=== PATIENT | female | born 1995 | race Caucasian/White ===

== ENCOUNTER 2024-08-05 18:20 | Emergency (ER) | payer MEDICAID, SELFPAY ==
[2024-08-05 18:24] VITALS: BP 129/89; PULSE 101; RESP 16; TEMP 37.3; O2SAT 95; BMI 21.5
--- NOTE | 2024-08-05 18:54 | CRLHL7_ITS ---
For Patients: As a result of the Century Cures Act, medical imaging exams and procedure reports are released immediately into your electronic medical record. You may view this report before your referring provider. If you have questions, please contact your health care provider. INDICATION: Back pain. History of scoliosis. TECHNIQUE: PA and lateral chest radiographs. COMPARISON: None. FINDINGS: No pneumothorax or pleural effusion. Lungs are clear. Cardiac and mediastinal contours are within normal limits. Upper abdomen and osseous structures as imaged show no acute abnormality. Rightward convex curvature of the thoracic spine and leftward convex curvature of the lumbar spine. Thoracic anand hardware appears intact. IMPRESSION: No evidence of acute cardiopulmonary disease. Dictated by Tyree Cooper MD @ 08/05/2024 7:37:10 PM (Electronically Signed)
--- NOTE | 2024-08-05 18:55 | ED_ITS ---
HPI - Back Pain/Injury General Chief Complaint: Back Injury/Pain Stated Complaint: Back pain since childbirth Time Seen by Provider: 08/05/24 18:34 History of Present Illness HPI Narrative: This 29-year-old female comes in reporting right-sided back and rib pain that has been present more less for the past 16 months since the delivery of her son. She has a history of scoliosis and did have a surgery to stabilize her back 18 years ago. She has done well since then. She does report a feeling of fatigue and shortness of breath when climbing stairs or doing activities that she could otherwise tolerate. She does not report any unilateral limb swelling and reports no prior history of blood clot. She does not have any recent injury event but does have a growing son who she frequently lifts. She arrives here with normal vital signs except her pulse is borderline tachycardia at 100 1 beats per minute. Related Data Home Medications ?Medication ?Instructions ?Recorded ?Confirmed albuterol sulfate 90 mcg/actuation 2 puff inhalation Q6H PRN wheezing 08/05/24 08/05/24 aerosol inhaler (Ventolin HFA) dextroamphetamine-amphetamine 10 1 tab PO DAILY 08/05/24 08/05/24 mg tablet dextroamphetamine-amphetamine ER 1 cap PO DAILY 08/05/24 08/05/24 30 mg 24hr capsule,extend release fluticasone 100 mcg-salmeterol 50 1 ea inhalation Q12H 08/05/24 08/05/24 mcg/dose blistr powdr for inhalation (Advair Diskus) levothyroxine 25 mcg tablet 25 mcg PO DAILY 08/05/24 08/05/24 norethindrone acetate 1.5 1 tab PO DAILY 08/05/24 08/05/24 mg-ethinyl estradiol 30 mcg tablet (Yusra) Previous Rx's ?Medication ?Instructions ?Recorded ketorolac 10 mg tablet 10 mg PO Q8H 5 days #15 tabs 08/05/24 Allergies Allergy/AdvReac Type Severity Reaction Status Date / Time Sulfa (Sulfonamide Allergy Mild Hives Verified 08/05/24 18:33 Antibiotics) Review of Systems Status of ROS: Reports: 10 or more systems reviewed and unremarkable except as noted in History and below Narrative: Constitutional: No fevers, no weight gain or loss. Eyes: No discharge. No vision changes. HENT: No congestion, no sore throat, no ear pain. Cardiovascular: No chest pain, no palpitations. Respiratory: No shortness of breath, no wheezes, no cough. Gastrointestinal: No abdominal pain, no vomiting, no diarrhea. Genitourinary: No dysuria, no hematuria. Musculoskeletal: Normal range of motion. Pain is more localized just right of [place] in her mid back and sometimes radiates around to her right ribs. Skin: No rashes, no pruritis. Neurological: No dizziness, weakness, sensory change, speech change. Endo/Heme/Allergies: No bruising or bleeding. No polydipsia. Pysch: no suicidality, no anxiety, no insomnia. All other systems reviewed and are negative. PFSH [facility] Social History Smoking Status: Never smoker Do you use any of these nicotine containing products: None Second hand tobacco smoke exposure: No How often do you have a drink containing alcohol: never AUDIT-C Alcohol total score: 0 Non-prescribed substance use: denies use service: No Exam Narrative: Exam Narrative: Constitutional: Well-developed, well-nourished, no acute distress. HEENT: Normocephalic, atraumatic. Neck: Normal range of motion. Nontender. Supple. Heart: Regular. No murmurs. Normal rate. Intact distal pulses. Lungs: Clear to auscultation. No chest discomfort. No wheezes, rhonchi, or r ales. Abdomen: Normal bowel sounds. Nontender. No rebound tenderness. Genitalia: Deferred. Back: No midline tenderness. Normal range of motion. Extremities: Normal range of motion. No injury. Skin: Intact. No rash. Warm. No erythema or pallor. Neurologic: No altered sensation. No weakness. Alert and oriented. Psychiatric: No suicidality. No anxiety or depression. No insomnia. Nursing notes and vitals signs are reviewed. Const: Vital Signs, click to edit/add: Vital Signs - 24 hr 08/05/24 18:24 Temperature 99.2 F Pulse Rate [Pulse Oximeter] 101 H Respiratory Rate 16 Blood Pressure [Ri ght Upper Arm] 129/89 Pulse Oximetry 95 Oxygen Delivery Me thod Room Air Course Vital Signs Vital signs: Initial Vital Signs Temperature 99.2 F 08/05/24 18:24 Temperature Source Temporal Artery Scan 08/05/24 18:24 Pulse Rate 101 H 08/05/24 18:24 Pulse Rhythm Regular 08/05/24 18:24 Pulse Strength 3+ Normal 08/05/24 18:24 Respiratory Rate 16 08/05/24 18:24 Blood Pressure 129/89 08/05/24 18:24 Blood Pressure Mean 102 08/05/24 18:24 Blood Pressure Position Sitting 08/05/24 18:24 Pulse Oximetry 95 08/05/24 18:24 Oxygen Delivery Method Room Air 08/05/24 18:24 Vital Signs Temperature 99.2 F 08/05/24 18:24 Pulse Rate 101 H 08/05/24 18:24 Respiratory Rate 16 08/05/24 18:24 Blood Pressure 129/89 08/05/24 18:24 Pulse Oximetry 95 08/05/24 18:24 Oxygen Delivery Method Room Air 08/05/24 18:24 Temperature 99.2 F 08/05/24 18:24 Pulse Rate 101 H 08/05/24 18:24 Respiratory Rate 16 08/05/24 18:24 Blood Pressure 129/89 08/05/24 18:24 Pulse Oximetry 95 08/05/24 18:24 Oxygen Delivery Method Room Air 08/05/24 18:24 MDM - Back Pain/Injury MDM Narrative Medical decision making narrative: This patient comes in reporting pain along the right side of her spine in the mid back and radiates along her chest. She comes in with concerns after reading from web sites on the Internet thinking that she just wants to know that she does not have something else wrong with her like cancer. She does have scoliosis and did have raw displaced about 18 years ago. She does not report any specific injury event but does have demands for lifting her [id number] son. Her exam is reassuring today. Labs are acquired and these returned with normal results. Her D-dimer is in normal range. Her C reactive protein returns at 2. Her white count and hemoglobin electrolytes are all normal range. Additionally x-ray of her chest is obtained which shows no acute findings. This was reassuring to the patient. She is okay to be discharged home. I did provide a prescription for Toradol. Lab Data Labs: Lab Results 08/05/24 Range/Units 19:04 WBC 6.99 (4.50-11.00) K/uL RBC 4.55 (4.00-5.20) m/uL Hgb 14.1 (12.0-16.0) gm/dL Hct 41.9 (33.0-51.0) % MCV 92 (80-100) fL MCH 31 (26-34) pg MCHC 34 (32-36) gm/dL RDW Coeff of Kwadwo 13.1 (11.5-15.5) % Plt Count 282 (140-440) K/uL Neut % (Auto) 80.9 H (42.0-72.0) % Lymph % (Auto) 10.9 L (20-44) % [place] % (Auto) 7.4 (0.0-11.0) % Eos % (Auto) 0.3 (0.0-7.0) % Baso % (Auto) 0.4 (0.0-3.0) % Neut # (Auto) 5.70 (1.7-7.0) K/uL Lymph # (Auto) 0.80 L (0.90-2.90) K/uL [place] # (Auto) 0.50 (0.00-0.90) K/UL Eos # (Auto) 0.02 (0.00-0.50) K/uL Baso # (Auto) 0.03 (0.00-0.30) K/uL Abs Immat Gran (auto) 0.01 (0.00-0.30) K/uL Imm/Tot Granulo (auto) 0.1 % D-Dimer Quant (PE/DVT) 0.34 (0.00-0.50) ug/ml Sodium 137 (135-149) mmol/L Potassium 3.9 (3.6-5.1) mmol/L Chloride 103 (96-114) mmol/L Carbon Dioxide 28 (20-32) mmol/L Anion Gap 6 L (7-15) mEq/L BUN 15 (5-24) mg/dL Creatinine 0.8 (0.5-1.5) mg/dL Estimated Creat Clear 73.19 Estimated GFR 101 ml/min Glucose 101 (60-115) mg/dL Calcium 9.4 (8.4-10.6) mg/dL C-Reactive Protein 2.1 H (0.5-1.0) mg/dL Imaging Data Chest x-ray: Radiologist's impression: FINDINGS: No pneumothorax or pleural effusion. Lungs are clear. Cardiac and mediastinal contours are within normal limits. Upper abdomen and osseous structures as imaged show no acute abnormality. Rightward convex curvature of the thoracic spine and leftward convex curvature of the lumbar spine. Thoracic anand hardware appears intact. IMPRESSION: No evidence of acute cardiopulmonary disease. Discharge Plan Discharge Clinical Impression: Thoracic back pain Patient Disposition: Home, Self-Care Condition: Stable Additional Instructions: Take medication as needed and indicated. Activity as tolerated. Follow up with MD return if worsening. Prescriptions: New ketorolac 10 mg tablet 10 mg PO Q8H 5 Days Qty: 15 0RF No Action dextroamphetamine-amphetamine 10 mg tablet 1 tab PO DAILY norethindrone ac-eth estradiol [Yusra] 1.5-30 mg-mcg tablet 1 tab PO DAILY levothyroxine 25 mcg tablet 25 mcg PO DAILY fluticasone propion-salmeterol [Advair Diskus] 100-50 mcg/dose blister with device 1 ea inhalation Q12H albuterol sulfate [Ventolin HFA] 90 mcg/actuation HFA aerosol inhaler 2 puff inhalation Q6H PRN (Reason: wheezing) dextroamphetamine-amphetamine 30 mg capsule,extended release 24hr 1 cap PO DAILY Follow Up/Referrals: Provider,Not a Local [Primary Care Provider] - Stand Alone Forms: [employer] Info Instructions
[2024-08-05 19:10] LABS: Basophils Absolute Auto 0.03 K/uL (0.00-0.30); Basophils Percent Auto 0.4 % (0.0-3.0); Eosinophils Absolute Auto 0.02 K/uL (0.00-0.50); Eosinophils Percent Auto 0.3 % (0.0-7.0); Hematocrit 41.9 % (33.0-51.0); Hemoglobin* 14.1 gm/dL (12.0-16.0); Immature Granulocytes Abs Auto 0.01 K/uL (0.00-0.30); Immature Granulocytes Pct Auto 0.1 %; Lymphocytes Percent Auto 10.9 % (20-44); Mean Corpuscular HGB Conc 34 gm/dL (32-36); Mean Corpuscular Hemoglobin 31 pg (26-34); Mean Corpuscular Volume 92 fL (80-100); Monocytes Percent Auto 7.4 % (0.0-11.0); Neutrophils Percent Auto 80.9 % (42.0-72.0); Platelet Count* 282 K/uL (140-440); RDW Coefficient of Variation % 13.1 % (11.5-15.5); Red Blood Count 4.55 m/uL (4.00-5.20); White Blood Count* 6.99 K/uL (4.50-11.00)
[2024-08-05 19:15] LABS: Slide Review Reflex No
[2024-08-05 19:49] LABS: Chloride* 103 mmol/L (96-114); Potassium* 3.9 mmol/L (3.6-5.1); Sodium* 137 mmol/L (135-149)
[2024-08-05 19:52] LABS: Creatinine* 0.8 mg/dL (0.5-1.5); Est. Creatinine Clearance* 73.19; Estimated Glomerular Filt Rate 101 ml/min
[2024-08-05 19:53] LABS: Anion Gap 6 mEq/L (7-15); Blood Urea Nitrogen* 15 mg/dL (5-24); Calcium* 9.4 mg/dL (8.4-10.6); Carbon Dioxide* 28 mmol/L (20-32); Glucose* 101 mg/dL (60-115)
[2024-08-05 19:56] LABS: C Reactive Protein* 2.1 mg/dL (0.5-1.0)
[2024-08-05 20:16] LABS: D Dimer Quantitative* 0.34 ug/ml (0.00-0.50)
== END 2024-08-05 20:37 | disposition home or self-care (01) ==
PROVIDERS: Emergency Provider Emergency Medicine Emergency Medical Services
DX: M54.6 Pain in thoracic spine (principal)
CPT/HCPCS: 36415; 71046; 80048; 85025; 85379; 86140; 99284

== ENCOUNTER 2024-11-04 11:07 | Emergency (ER) | payer MEDICAID, SELFPAY ==
[2024-11-04 11:24] VITALS: BP 153/116; PULSE 140; RESP 20; TEMP 36.5; O2SAT 96
--- NOTE | 2024-11-04 11:38 | ED.GENADULT ---
HPI - General Adult General Time Seen by Provider: 11:38 Date Seen: 11/04/24 Chief complaint: Cough Stated complaint: Chest Congestion Time Seen by Provider: 11/04/24 11:09 Source: patient and RN notes reviewed Mode of arrival: ambulatory Limitations: no limitations History of Present Illness HPI narrative: With this 29-year-old female is coming in with concern of cough and congestion for week now. She has been trying Mucinex for the last 2 days, has helped some. Patient does have underlying asthma. Her son is also being seen for respiratory illness. She ultimately is bringing her son in for evaluation but really just wanted somebody to listen to her lungs. She had 1 day Saturday of last week where she just randomly had a day where she threw up 5 times and was not feeling well, that abated. Her cough and chest congestion started recently, Mucinex is helping, is coughing up some green phlegm at times. She notes no fevers. She did use her albuterol in route. She states she has had increased use of her albuterol. She is not short of breath, no chest pain. She is also on Adderall. Denies any otalgia or sore throat, no current abdominal symptoms, no nausea vomiting or diarrhea currently. Related Data Home Medications ?Medication ?Instructions ?Recorded ?Confirmed albuterol sulfate 90 mcg/actuation 2 puff inhalation Q6H PRN wheezing 08/05/24 11/04/24 aerosol inhaler (Ventolin HFA) dextroamphetamine-amphetamine 10 1 tab PO DAILY 08/05/24 11/04/24 mg tablet dextroamphetamine-amphetamine ER 1 cap PO DAILY 08/05/24 11/04/24 30 mg 24hr capsule,extend release fluticasone 100 mcg-salmeterol 50 1 ea inhalation Q12H 08/05/24 11/04/24 mcg/dose blistr powdr for inhalation (Advair Diskus) levothyroxine 25 mcg tablet 25 mcg PO DAILY 08/05/24 11/04/24 norethindrone acetate 1.5 1 tab PO DAILY 08/05/24 11/04/24 mg-ethinyl estradiol 30 mcg tablet (Yusra) Previous Rx's ?Medication ?Instructions ?Recorded ketorolac 10 mg tablet 10 mg PO Q8H 5 days #15 tabs 08/05/24 azithromycin 250 mg tablet See Rx Instructions PO .COMPLEX #6 11/04/24 tabs Allergies Allergy/AdvReac Type Severity Reaction Status Date / Time Sulfa (Sulfonamide Allergy Mild Hives Verified 08/05/24 18:33 Antibiotics) hazelnut Allergy Unknown Verified 11/04/24 11:27 Review of Systems Status of ROS: Reports: 6 or more systems reviewed and unremarkable except as noted in History and below [facility] Medical History (Updated 11/04/24 @ 13:01 by Martha Perla MD) Asthma ?J45.909 - Unspecified asthma, uncomplicated (ICD-10) Social History Smoking Status: Never smoker Do you use any of these nicotine containing products: None Second hand tobacco smoke exposure: No How often do you have a drink containing alcohol: never AUDIT-C Alcohol total score: 0 Non-prescribed substance use: denies use service: No Exam Const: Vital Signs, click to edit/add: Vital Signs - 24 hr 11/04/24 11:24 Temperature 97.7 F Pulse Rate [Pulse Oximeter] 140 H Respiratory Rate 20 Blood Pressure [Ri ght Upper Arm] 153/116 H Pulse Oximetry 96 Oxygen Delivery Me thod Room Air This 29 year old female is alert, interactive, no apparent distress. Pupils equal round reactive, sclera clear, symmetrical facial function. TMs canals are normal, normal translucency and light reflex. Oropharynx are mucosa no exudates erythema. She is able speak in complete sentences, voice is normal. Neck is supple, no adenopathy. Lungs are clear, good air entry, no wheezing or crackles, no accessory muscle use, no tachypnea. CV slightly fast but regular, do not hear any murmur, normal S1-S2, no S3-S4. Pulse when I take it when I am in with her is around 100-110. Documenting provider has reviewed patient's vital signs: yes Course Course ED Course: Mom had declined the triple viral swab but agreed to have this done on her son as he is unvaccinated and it is important for us to understand his exact illness. She has had prior childhood immunizations. Right now her heart rate is coming down, certainly could have been albuterol. COVID sometimes has shown to escalate heart rates for patients. We will see what her son's swab comes back with. He certainly may have COVID but with his clinical respiratory presentation with crying, highly suspect pertussis and have reviewed this with Mom. We will see what her son shows and very likely probably treat both of them for potential pertussis with appropriate antibiotic. Reevaluation(s) Time of Reevaluation #1: 12:47 Reevaluation #1: Reviewed child negative tests with Mom, her child is now resting easily, she is not coughing, no concerning respiratory change on re-evaluation. As I do have significant clinical concern for pertussis in her child, it is likely she has this as well but just some milder case given her history of vaccination. We did discuss that with pertusses household contacts and those that are ill should be treated. We will give her a Z-Alec. She is on contraception, did discuss that antibiotics can decrease the effectiveness of contraceptives and should use extra protection until next cycle. Vital Signs Vital signs: Initial Vital Signs Temperature 97.7 F 11/04/24 11:24 Temperature Source Oral 11/04/24 11:24 Pulse Rate 140 H 11/04/24 11:24 Respiratory Rate 20 11/04/24 11:24 Blood Pressure 153/116 H 11/04/24 11:24 Blood Pressure Mean 128 H 11/04/24 11:24 Blood Pressure Position Sitting 11/04/24 11:24 Pulse Oximetry 96 11/04/24 11:24 Oxygen Delivery Method Room Air 11/04/24 11:24 Vital Signs Temperature 97.7 F 11/04/24 11:24 Pulse Rate 140 H 11/04/24 11:24 Respiratory Rate 20 11/04/24 11:24 Blood Pressure 153/116 H 11/04/24 11:24 Pulse Oximetry 96 11/04/24 11:24 Oxygen Delivery Method Room Air 11/04/24 11:24 Temperature 97.7 F 11/04/24 11:24 Pulse Rate 140 H 11/04/24 11:24 Respiratory Rate 20 11/04/24 11:24 Blood Pressure 153/116 H 11/04/24 11:24 Pulse Oximetry 96 11/04/24 11:24 Oxygen Delivery Method Room Air 11/04/24 11:24 Discharge Plan Discharge Clinical Impression: Cough Qualifiers: Cough type: acute Qualified Code(s): R05.1 - Acute cough Asthma Qualifiers: Asthma severity: unspecified severity Asthma persistence: unspecified Asthma complication type: uncomplicated Qualified Code(s): J45.909 - Unspecified asthma, uncomplicated Patient Disposition: Home, Self-Care Condition: Stable Instructions: Pertussis (ED) Additional Instructions: Take antibiotic as prescribed and complete. Use backup method of protection until next cycle as antibiotics can decreased effectiveness of control. I am concerned that your son clinically appears to have pertussis, swab is being done on him. We will treat you accordingly. Guidelines recommend that you avoid contact and stay at home until your antibiotics are completed. Use albuterol, [id number] medications such as Mucinex as needed for symptom control. If you feel you are worsening or have further concerns, please seek re-evaluation. Prescriptions: New azithromycin 250 mg tablet See Rx Instructions .ROUTE .COMPLEX Qty: 6 0RF Rx Instructions: For 250 mg dose pack: take 500 mg today (day 1), then 250 mg for 4 days (days 2-5) No Action dextroamphetamine-amphetamine 10 mg tablet 1 tab PO DAILY norethindrone ac-eth estradiol [Yusra] 1.5-30 mg-mcg tablet 1 tab PO DAILY levothyroxine 25 mcg tablet 25 mcg PO DAILY fluticasone propion-salmeterol [Advair Diskus] 100-50 mcg/dose blister with device 1 ea inhalation Q12H albuterol sulfate [Ventolin HFA] 90 mcg/actuation HFA aerosol inhaler 2 puff inhalation Q6H PRN (Reason: wheezing) dextroamphetamine-amphetamine 30 mg capsule,extended release 24hr 1 cap PO DAILY ketorolac 10 mg tablet 10 mg PO Q8H 5 Days Qty: 15 0RF Follow Up/Referrals: Provider,Not a Local [Primary Care Provider] - Stand Alone Forms: [employer] Info Instructions
[2024-11-04 13:14] VITALS: BP 154/107; PULSE 109; RESP 20; O2SAT 97
== END 2024-11-04 13:21 | disposition home or self-care (01) ==
PROVIDERS: Emergency Provider Family Medicine
DX: J45.909 Unspecified asthma, uncomplicated (principal); R05.1 Acute cough
CPT/HCPCS: 99283

== ENCOUNTER 2024-12-14 00:06 | Emergency (ER) | payer MEDICAID, SELFPAY ==
--- OUTSIDE RECORDS SUMMARY | 2024-12-14 00:08 | XMS_ITS | Clinical Summary ---
Author Organization [facility] Address [address] [place] [address]. [place] [address] Care Team Providers Care Gauge Controller Name Role Phone Felipa Wallace PA-C Primary Care Provid er Felipa Wallace PA-C Unavailable +1- [phone] Allergies Active Allergy Reactions Criticality Noted Date Comments Amoxicillin 07/24/2013 Cefixime 09/05/2020 Had a reaction when I was a baby. Does not know the reaction [place]elnut (Filbert) 04/10/2023 Medications EPINEPHrine (ANY BX GENERIC EQUIV) 0.3 MG/0.3ML injection 2-pack Inject 0.3 mLs (0.3 mg) into the muscle as needed for anaphylaxis 1 each 09/05/20 20 Active JUNEL 1.04/30 1.5-30 MG-MCG tablet Take 1 tablet by mouth daily 08/19/20 23 Active levothyroxine (SYNTHROID/LEVOTH ROID) 25 MCG tabletIndications :Hypothyroidism, unspecified type Take 1 tablet (25 mcg) by mouth daily 90 tablet 1 07/15/20 24 Active albuterol (VENTOLIN HFA) 108 (90 Base) MCG/ACT inhalerIndication s:Moderate persistent asthma without complication Inhale 2 puffs into the lungs every 6 hours as needed for shortness of breath, wheezing or cough. 18 g 07/28/20 24 Active ADVAIR DISKUS 100-50 MCG/ACT inhalerIndication s:Mild persistent asthma without complication,Shor tness of breath INHALE 1 PUFF INTO THE LUNGS EVERY 12 HOURS 1 each 5 08/25/20 24 Active amphetamine-dextr oamphetamine (ADDERALL) 10 MG tabletIndications :ADHD (attention deficit hyperactivity disorder), inattentive type Take 1 tablet (10 mg) by mouth daily. 30 tablet 11/17/20 24 025 Active amphetamine-dextr oamphetamine (ADDERALL) 10 MG tabletIndications :ADHD (attention deficit hyperactivity disorder), inattentive type Take 1 tablet (10 mg) by mouth daily. 30 tablet 12/18/19 25 025 Active amphetamine-dextr oamphetamine (ADDERALL XR) 30 MG 24 hr capsuleIndication s:ADHD (attention deficit hyperactivity disorder), inattentive type Take 1 capsule (30 mg) by mouth daily. 30 capsule 12/12/19 25 025 Active amphetamine-dextr oamphetamine (ADDERALL) 10 MG tabletIndications :ADHD (attention deficit hyperactivity disorder), inattentive type Take 1 tablet (10 mg) by mouth daily. 30 tablet 10/18/20 24 024 amphetamine-dextr oamphetamine (ADDERALL XR) 30 MG 24 hr capsuleIndication s:ADHD (attention deficit hyperactivity disorder), inattentive type Take 1 capsule (30 mg) by mouth daily. 30 capsule 11/12/20 24 025 Active Problems Problem Noted Date Diagnosed Date Hypothyroidism, unspecified type 07/15/2024 History of scoliosis 07/15/2024 Mild persistent asthma without complication 01/03 ADHD (attention deficit hype ractivity disorder), inattentive type 01/29/2024 ACP (advance care planning) 09/03/2023 Gestational hypertension 04/15/2023 delivery delivered 04/12/2023 ASCUS on Pap smear 11/12/2014 Overview (03/22/2017): 11/12/14 ASCUS, 21-24 yrs, Dx pap 1 yr 03/08/17 Would consider patient to be lost to follow-up. 03/22/17 Patient is considered lost to f/u. End Tracking Mild intermittent asthma 09/29/2013 CARDIOVASCULAR SCREENING; LDL GOAL LESS THAN 160 07/26/2013 Resolved Problems Problem Noted Date Diagnosed Date Resolved Date Health Jail 09/03/2023 05/18/2024 Encounters Date Type Department Care Team Description 10/12/2024 MyC Medical Advice [facility] [address] [place] [phone] Felipa Wallace PA-C 10/09/2024 MyC Refill [facility] [address] [place] [address] [address] [place] [address] Felipa Wallace PA-C Refill Request from Last 3 Months Immunizations Name Administration Dates Next Due Flu, Unspecified 08/26/2017,09/11/2013 HPV 12/17/2014,07/28/2014 HPV Quadrivalent 12/17/2014,07/28/2014 Hpv, Unspecified 12/17/2014,07/28/2014 Influenza (IIV3) PF 08/26/2017 Influenza Vaccine >6 months,quad, PF 09/11/2013 TDAP (Adacel,Boostrix) 03/04/2023 TDAP Vaccine (Adacel) 07/31/2013 Family History Medical History Relation Comments Family History Negative Father Family History Negative Maternal Grandfather Family History Negative Maternal Grandmother Diabetes Type 2 Mother Breast Cancer Paternal Aunt Family History Negative Paternal Grandfather Family History Negative Paternal Grandmother Colon Cancer No family hx of Relation Status Comments Brother Alive Father Alive Maternal Grandfather Alive Maternal Grandmother Alive Mother Alive Paternal Aunt Alive Paternal Grandfather Paternal Grandmother Paternal Half-Brother Alive Son Alive Social History Tobacco Use Types Packs/Day Years Used Date Smoking Tobacco: Never Passive Smoke Exposure: Never Smokeless Tobacco: Never Alcohol Use Standard Drinks/Week Comments Not Currently 0 (1 standard drink = 0.6 oz pur e alcohol) PHQ-2 Answer Date Recorded PHQ-2 Score 2 01/29/2024 [place] Depression Scale Answer Date Recorded Last EPDS Total Score Not on file 04/15/2023 The thought of harming myself has occurred to me . Never 04/15/2023 Adolescent Education Answer Date Record ed Getting School Help Needed Not on file 09/03 Comments No Sex and Gender Information Value Date Recorded Sex Assigned at Not on file Legal Sex Female 3:26 AM REVIVAL CLERK Gender Identity Not on file Sexual Orientation Not on file Last Filed Vital Signs Vital Sign Reading Time Taken Comments Blood Pressure 108/84 07/15/2024 11:44 AM CDT Pulse 82 07/15/2024 11:44 AM CDT Temperature 36.6 C (97.8 F) 07/15/2024 11:44 AM CDT Respiratory Rate 18 07/15/2024 11:44 AM CDT Oxygen Saturation 99% 07/15/2024 11:44 AM CDT Inhaled Oxygen Concentration - - Weight 52.2 kg (115 lb) 07/15/2024 11:44 AM CDT Height 153.7 cm (5' 0.5) 01/29/2024 9:48 AM REVIVAL CLERK Body Mass Index 22.09 01/29/2024 9:48 AM REVIVAL CLERK Plan of Treatment Health Maintenance Due Date Last Done Comments ANNUAL REVIEW OF HM ORDERS 1993 HEPATITIS C SCREENING 2011 YEARLY PREVENTIVE VISIT 07/24/2014 07/24/2013 PAP 11/12/2015 11/12/2014 COVID-19 Vaccine ( season) 2024 INFLUENZA VACCINE (#1) 2024 7, 08/26/2017, 09/11/2013, Additional history exists ASTHMA CONTROL TEST 01/15/2025 07/15/2024, ASTHMA ACTION PLAN 01/29/2025 01/29/2024, 0 01/29/2024, 01/29/2024, Additional history exists TSH W/FREE T4 REFLEX 01/29/2025 01/29/2024 HEPATITIS B IMMUNIZATION (1 of 3 - 19+ 3-dose series) 01/29/2027 Postponed from 05/05 (Not Able to Schedule At This Time) HPV IMMUNIZATION (3 - 3-dose series) 01/29/2027 12/17/2014, 12/17/2014, 12/17/2014, Additional history exists Postponed from 03/11/2015 (Patient Declined) ADVANCE CARE PLANNING 09/03/2028 09/03/2023, 10/03/2 023 Pneumococcal Vaccine: Pediatrics (0 to 5 Years) and At-Risk Patients (6 to 49 Years) (1 of 2 - PCV) 01/29/2030 Postponed from 05/05 (Additional Documentation Needed) DTAP/TDAP/TD IMMUNIZATION (3 - Td or Tdap) 03/04/2033 03/04/2023, 07/31/2013 RSV VACCINE (1 - 1-dose 75+ series) 2068 HIV SCREENING Completed 09/17/2022, 11/01, 07/24/2013 PHQ-2 (once per calendar year) Completed 01/29/2024, 09/03/2023 MENINGITIS IMMUNIZATION Aged Out No l onger eligible based on patient's age to complete this topic RSV MONOCLONAL ANTIBODY Aged Out No l onger eligible based on patient's age to complete this topic Procedures Procedure Name Priority Date/Time Associated Diagnosis Comments ASTHMA ACTION PLAN Routine 01/29/2024 1: 19 PM REVIVAL CLERK Mild persistent asthma without complication TSH WITH FREE T4 REFLEX ([facility]) Routine 01/29/2024 11:30 AM REVIVAL CLERK Shortness of breath Hypothyroidism, unspecified type HIV 1&2 ANTIBODY (EXTERNAL RESULT) Routine 09/17/2022 8:00 AM CDT PAP IMAGED THIN LAYER SCREEN Routine 11/12/2014 12:00 AM REVIVAL CLERK from Last 3 Months or Most Recently Relevant to Health Maintenance Results * TSH WITH FREE T4 REFLEX ([facility]) (01/29/2024 11:30 AM REVIVAL CLERK) TSH 0.60 mIU/L [facility] Comment: Reference Range > or = 20 Years 0.40-4.50 Ranges First trimester 0.26-2.66 Second trimester 0.55-2.73 Third trimester 0.43-2.91 Blood 01/29/2024 11:3 0 AM REVIVAL CLERK 01/30/2024 3:13 AM REVIVAL CLERK Narrative Resulting Agency Comment Performing Organization Information: [facility] [address] [place] [address] Jason Zaldivar Felipa Wallace PA-C LAB - NON-BEAKER BLO OD LABS Final Result [facility] [place] [address], [facility] [phone] * HIV-1 Antibody (External Result) (09/17/2022 8:00 AM CDT) HIV 1&2 Antibody (External) Negative Nonreactive EXTERNAL LAB 09/17/2022 8:00 AM CDT us Patient Reported LAB - HIM EXTERNAL RESULT Final Result EXTERNAL LAB External Lab * (ABNORMAL) PAP IMAGED THIN LAYER SCREEN (11/12/2014 12:00 AM REVIVAL CLERK) PAP ASC-US(A) JAMEE Rodriguez Report Patient Name: ISHAN HENDERSON MR#: [id number] Specimen #: [id number] Collected: 11/12/2014 Received: 11/15/2014 Reported: 11/19/2014 16:30 Ordering Phy(s): LESIA TRAN SPECIMEN/STAIN PROCESS: Pap imaged thin layer prep screening (Surepath, FocalPoint with guided screening) Pap-Cyto x 1 SOURCE: Cervical, endocervical Pap imaged thin layer prep screening (Surepath, FocalPoint with guided screening) SPECIMEN ADEQUACY: Satisfactory for evaluation. -Transformation zone component present. CYTOLOGIC INTERPRETATION: Epithelial Cell Abnormality: Squamous Cell: Atypical squamous cells-of undetermined significance (ASC-US). Electronically signed out by: Shaka Nguyen M.D. Processed and screened at [facility], [facility] CLINICAL HISTORY: LMP: 10/27/14 Papanicolaou Test Limitations: Cervical cytology is a screening test with limited sensitivity; regular screening is critical for cancer prevention; Pap tests are primarily effective for the diagnosis/preventi on of squamous cell carcinoma, not adenocarcinomas or other cancers. TESTING LAB LOCATION: [facility] [address] [place] [address] COLLECTION SITE: Client: [facility] Location: [facility] (R) COPATH Cytologic material (specimen) 11/12/2014 11/15/2014 12:11 PM REVIVAL CLERK us Lesia Tran COORDINATING PRODUCER [address] STENOGRAPHER LAB - [facility] PEC[facility] ANN Final Result COPATH from Last 3 Months or Most Recently Relevant to Health Maintenance [facility] Advance Directives For more information, please contact: [phone] * Full Code (Latest Code Status on File) Date Activated Date Inactivated Comments 04/12/2023 8:47 AM 04/15/2023 8:49 PM All basic an d advanced life-sustaining interventions are performed as appropriate Question Answer Comments Code status determined by: Discussion with reagan nt/ legal decision maker Care Teams Gauge Controller Relationship Specialty Start Date End Date Felipa Wallace PA-C [address], [address] [address] PCP - General Family Medicine 09/02/23 Felipa Wallace PA-C [address], [facility] [address] [place] [address] Assigned PCP 09/07/23
--- OUTSIDE RECORDS SUMMARY | 2024-12-14 00:08 | XMS_ITS | Continuity of Care Document ---
Author Name NwHIN User [facility] Address Unknown Organization Unknown Address Unknown Encounters FILTER APPLIED:Only known Encounters with Admission Date within the last 5 years Encounter Location Admission Discharge Billing Code Head Neck Surgeon [facility]
--- OUTSIDE RECORDS SUMMARY | 2024-12-14 00:09 | XMS_ITS | Encounter Summary ---
Author Organization [facility] Address [address] [place], [place] [address]. [place] [address] Care Team Providers Care Pull Over Name Role Phone Felipa Wallace PA-C Primary Care Provid er Felipa Wallace PA-C Unavailable +- [phone] Reason for Visit * Reason Onset Date Comments Refill Request 04/15/2024 Encounter Details Date Type Department Care Team ([facility] st Contact Info) Description 04/15/2024 MyC Refill [facility] [address] [phone] Felipa Wallace PA-C [address] [place] [id number] Refill Request Social History Tobacco Use Types Packs/Day Years Used Date Smoking Tobacco: Never Passive Smoke Exposure: Never Smokeless Tobacco: Never Alcohol Use Standard Drinks/Week Comments Not Currently 0 (1 standard drink = 0.6 oz pur e alcohol) PHQ-2 Answer Date Recorded PHQ-2 Score 2 01/29/2024 [place] Depression Scale Answer Date Recorded Last EPDS Total Score Not on file 04/15/2023 The thought of harming myself has occurred to me . Never 04/15/2023 Adolescent Education Answer Date Record ed Getting School Help Needed Not on file 09/03 Comments No Sex and Gender Information Value Date Recorded Sex Assigned at Not on file Legal Sex Female 3:26 AM OPERATIONS SUPPORT REPRESENTATIVE Gender Identity Not on file Sexual Orientation Not on file documented as of this encounter Plan of Treatment Not on file documented as of this encounter Visit Diagnoses Diagnosis ADHD (attention deficit hyperactivity disorder), inattentive type Attention deficit disorder with hyperactivity documented in this encounter Care Teams Pull Over Relationship Specialty Start Date End Date Felipa Wallace PA-C [address], [address] [address] PCP - General Family Medicine 09/02/23 Felipa Wallace PA-C [address], [address] [address] Assigned PCP 09/07/23 documented as of this encounter
--- OUTSIDE RECORDS SUMMARY | 2024-12-14 00:09 | XMS_ITS | Encounter Summary ---
Author Organization [facility] Address [facility] [place] [address] Care Team Providers Care Java Programming Professor Name Role Phone Specialists, Obstetrics & Gynecology Primary Car e Provider Felipa Wallace PA-C Primary Care Provid er Felipa Wallace PA-C Unavailable +- [phone] Reason for Visit * Reason Comments Medication Refill Encounter Details Date Type Department Care Team (Late st Contact Info) Description 10/18/2020 [facility] [address], [address] [place] [address] Darlene Wise PA-C [address] [facility] [address] [place], [place] [id number] Medication Refill Social History Tobacco Use Types Packs/Day Years Used Date Smoking Tobacco: Never Smokeless Tobacco: Never Alcohol Use Standard Drinks/Week Comments Yes 0 (1 standard drink = 0.6 oz pur e alcohol) 4 drinks per week. Comments No Sex and Gender Information Value Date Recorded Sex Assigned at Not on file Legal Sex Female 3:26 AM DIRECTOR STERILE PROCESSING Gender Identity Not on file Sexual Orientation Not on file documented as of this encounter Miscellaneous Notes * Telephone Encounter - Jacqueline Izaguirre RN - 10/18/2020 8:55 AM CST This provider no longer practices in this location. Jacqueline Izaguirre, RN on 10/18/2020 at 8:55 AM CTOR STERILE PROCESSING documented in this encounter Plan of Treatment Not on file documented as of this encounter Visit Diagnoses Diagnosis Mild intermittent asthma Unspecified asthma documented in this encounter Care Teams Java Programming Professor Relationship Specialty Start Date End Date Specialists, Obstetrics & Gynecology [address], [address] [place], [place] [phone] PCP - General 09/05/20 09/01/23 Felipa Wallace PA-C [address], [address] [address] PCP - General Family Medicine 09/02/23 Felipa Wallace PA-C [address], [facility] [address] [place] [address] Assigned PCP 09/07/23 documented as of this encounter
--- OUTSIDE RECORDS SUMMARY | 2024-12-14 00:09 | XMS_ITS | Encounter Summary ---
Author Organization [facility] Address [address] [place] [address]. [place] [address] Care Team Providers Care Encephalographer Name Role Phone Felipa Wallace PA-C Primary Care Provid er Felipa Wallace PA-C Unavailable +- [phone] Reason for Visit * Reason Onset Date Comments Refill Request 04/23/2024 Encounter Details Date Type Department Care Team ([facility] st Contact Info) Description 04/23/2024 MyC Refill [facility] [address] [phone] Felipa Wallace PA-C [address] [place] [id number] Refill Request Social History Tobacco Use Types Packs/Day Years Used Date Smoking Tobacco: Never Passive Smoke Exposure: Never Smokeless Tobacco: Never Alcohol Use Standard Drinks/Week Comments Not Currently 0 (1 standard drink = 0.6 oz pur e alcohol) PHQ-2 Answer Date Recorded PHQ-2 Score 2 01/29/2024 [place] Depression Scale Answer Date Recorded Last EPDS Total Score Not on file 04/15/2023 The thought of harming myself has occurred to me . Never 04/15/2023 Adolescent Education Answer Date Record ed Getting School Help Needed Not on file 09/03 Comments No Sex and Gender Information Value Date Recorded Sex Assigned at Not on file Legal Sex Female 3:26 AM WEED SPRAYER Gender Identity Not on file Sexual Orientation Not on file documented as of this encounter Miscellaneous Notes * Telephone Encounter - Nora Rust MD - 04/23/2024 12:45 PM CDT Pdmp reviewed, refilled. * Telephone Encounter - Maria De Jesus Cope CMA - 04/23/2024 12:41 PM CDT Pt sent myChart requesting next 3 months of adderall, taking Adderall XR 30mg and Adderall 10mg. Ptlast seen 01/29/24, can you review for SRB? Juliet Henderson is requesting a refill of: Pending Prescriptions: Disp Refills amphetamine-dextroamphetamine (ADDERALL X*30 cap*0 Sig: Take 1 capsule (30 mg) by mouth daily for 30 days amphetamine-dextroamphetamine (ADDERALL X*30 cap*0 Sig: Take 1 capsule (30 mg) by mouth daily for 30 days amphetamine-dextroamphetamine (ADDERALL X*30 cap*0 Sig: Take 1 capsule (30 mg) by mouth daily for 30 days amphetamine-dextroamphetamine (ADDERALL) *30 tab*0 Sig: Take 1 tablet (10 mg) by mouth daily for 30 days amphetamine-dextroamphetamine (ADDERALL) *30 tab*0 Sig: Take 1 tablet (10 mg) by mouth daily for 30 days amphetamine-dextroamphetamine (ADDERALL) *30 tab*0 Sig: Take 1 tablet (10 mg) by mouth daily for 30 days documented in this encounter Plan of Treatment Not on file documented as of this encounter Visit Diagnoses Diagnosis ADHD (attention deficit hyperactivity disorder), inattentive type Attention deficit disorder with hyperactivity documented in this encounter Care Teams Encephalographer Relationship Specialty Start Date End Date Felipa Wallace PA-C [address], [address] [place] [address] PCP - General Family Medicine 09/02/23 Felipa Wallace PA-C [address] , [address] [address] Assigned PCP 09/07/23 documented as of this encounter
--- OUTSIDE RECORDS SUMMARY | 2024-12-14 00:09 | XMS_ITS | Encounter Summary ---
Author Organization [facility] Address [address] [place] [address]. [place] [address] Care Team Providers Care Interior Design Professor Name Role Phone Madina Amezcua MD Primary Care Provider Unavailable Specialists, Obstetrics & Gynecology Primary Car e Provider Felipa Wallace PA-C Primary Care Provid er Felipa Wallace PA-C Unavailable [phone]- [phone] Reason for Visit * Reason Onset Date Comments Vaginal Problem 03/02/2014 Update on vagina l discharge Encounter Details Date Type Department Care Team (Late st Contact Info) Description 03/02/2014 MyC Medical Advice [address] [address] Madina Amezcua MD Vaginal Problem (Update on vaginal discharge) Social History Tobacco Use Types Packs/Day Years Used Date Smoking Tobacco: Never Smokeless Tobacco: Never Alcohol Use Standard Drinks/Week Comments Yes 0 (1 standard drink = 0.6 oz pur e alcohol) occasional Comments No Sex and Gender Information Value Date Recorded Sex Assigned at Not on file Legal Sex Female 3:26 AM BELT LOOP MAKER Gender Identity Not on file Sexual Orientation Not on file documented as of this encounter Miscellaneous Notes * Telephone Encounter - Any Mesa RN - 03/03/2014 9:11 AM CDT Please review the MC message from pt & advise. Thanks. Any RN Message handled by Nurse Triage. documented in this encounter Plan of Treatment Not on file documented as of this encounter Visit Diagnoses Not on filedocumented in this encounter Care Teams Interior Design Professor Relationship Specialty Start Date End Date Goldie, Madina Zarate MD PCP - General Internal Medicine 11/30/13 10/27/17 Specialists, Obstetrics & Gynecology [address], [address] [place], [place] [phone] PCP - General 09/05/20 09/01/23 Felipa Wallace PA-C [address], [facility] 100 [place] [address] PCP - General Family Medicine 09/02/23 Felipa Wallace PA-C [address], [facility] [address] [place] [address] Assigned PCP 09/07/23 documented as of this encounter
--- OUTSIDE RECORDS SUMMARY | 2024-12-14 00:09 | XMS_ITS | Encounter Summary ---
Author Organization [place] Address [address] [place] [address]. [place] [address] Care Team Providers Care Roof Mechanic Name Role Phone Madina Amezcua MD Primary Care Provider Unavailable Specialists, Obstetrics & Gynecology Primary Car e Provider Felipa Wallace PA-C Primary Care Provid er Felipa Wallace PA-C Unavailable [phone]- [phone] Reason for Visit * Reason Onset Date Comments Vaginal Problem 01/10/2014 Vaginal discharg e Encounter Details Date Type Department Care Team (Late st Contact Info) Description 01/10/2014 MyC Medical Advice [address] [address] Madina Amezcua MD Vaginal Problem (Vaginal discharge) Social History Tobacco Use Types Packs/Day Years Used Date Smoking Tobacco: Never Smokeless Tobacco: Never Alcohol Use Standard Drinks/Week Comments Yes 0 (1 standard drink = 0.6 oz pur e alcohol) occasional Comments No Sex and Gender Information Value Date Recorded Sex Assigned at Not on file Legal Sex Female 3:26 AM FUR SCRAPER Gender Identity Not on file Sexual Orientation Not on file documented as of this encounter Plan of Treatment Not on file documented as of this encounter Visit Diagnoses Diagnosis Vaginal discharge- Primary Leukorrhea, not specified as infective Bacterial vaginosis Vaginitis and vulvovaginitis, unspecified documented in this encounter Care Teams Roof Mechanic Relationship Specialty Start Date End Date Goldie, Madina Zarate MD PCP - General Internal Medicine 11/30/13 10/27/17 Specialists, Obstetrics & Gynecology [address], [address] [place] [address] PCP - General 09/05/20 09/01/23 Felipa Wallace PA-C [address] , [facility] [address] [place] [address] PCP - General Family Medicine 09/02/23 Felipa Wallace PA-C [address], [facility] [address] [place] [address] Assigned PCP 09/07/23 documented as of this encounter
--- OUTSIDE RECORDS SUMMARY | 2024-12-14 00:09 | XMS_ITS | Encounter Summary ---
Author Organization [facility] Address [address] [place] [address]. [place] [address] Care Team Providers Care Information Systems Supervisor Name Role Phone Javi Webster MD Primary Care Provider [phone] Madina Amezcua MD Primary Care Provider Unavailable Specialists, Obstetrics & Gynecology Primary Car e Provider Felipa Wallace PA-C Primary Care Provid er Felipa Wallace PA-C Unavailable [phone] Reason for Visit * Reason Onset Date Comments Vaginal Problem 11/28/2013 Encounter Details Date Type Department Care Team (Late st Contact Info) Description 11/28/2013 MyC Medical Advice [address] [address] Madina Amezcua MD Vaginal Problem Social History Tobacco Use Types Packs/Day Years Used Date Smoking Tobacco: Never Smokeless Tobacco: Never Alcohol Use Standard Drinks/Week Comments Yes 0 (1 standard drink = 0.6 oz pur e alcohol) Comments No Sex and Gender Information Value Date Recorded Sex Assigned at Not on file Legal Sex Female 3:26 AM HOTEL ADMINISTRATIVE ASSISTANT Gender Identity Not on file Sexual Orientation Not on file documented as of this encounter Plan of Treatment Not on file documented as of this encounter Visit Diagnoses Not on filedocumented in this encounter Care Teams Information Systems Supervisor Relationship Specialty Start Date End Date Javi Webster MD [facility] [address] [facility] [address] [place] [address] PCP - General Pediatrics 08/02/13 11/29/13 Madina Amezcua MD [facility] [address] [facility] [address] [place] [address] PCP - General Internal Medicine 11/30/13 7 Specialists, Obstetrics & Gynecology [address], [address] [place] [address] PCP - General 09/05/20 09/01/23 Felipa Wallace PA-C [address], [address] [address] PCP - General Family Medicine 09/02/23 Felipa Wallace PA-C [address], [address] [address] Assigned PCP 09/07/23 documented as of this encounter
--- OUTSIDE RECORDS SUMMARY | 2024-12-14 00:09 | XMS_ITS | Encounter Summary ---
Author Organization [facility] [facility] Address [address] [place] [address]. [place] [address] Care Team Providers Care Admissions Counselor Name Role Phone Javi Webster MD Primary Care Provider [phone] Madina Amezcua MD Primary Care Provider Unavailable Specialists, Obstetrics & Gynecology Primary Car e Provider Felipa Wallace PA-C Primary Care Provid er Felipa Wallace PA-C Unavailable [phone] Reason for Visit * Reason Onset Date Comments Vaginal Problem 09/06/2013 Encounter Details Date Type Department Care Team (Late st Contact Info) Description 09/06/2013 MyC Medical Advice [address] [address] Madina Amezcua MD Vaginal Problem Social History Tobacco Use Types Packs/Day Years Used Date Smoking Tobacco: Never Smokeless Tobacco: Never Alcohol Use Standard Drinks/Week Comments Yes 0 (1 standard drink = 0.6 oz pur e alcohol) Comments Unknown Sex and Gender Information Value Date Recorded Sex Assigned at Not on file Legal 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 Gender Identity Not on file Sexual Orientation Not on file documented as of this encounter Plan of Treatment Not on file documented as of this encounter Visit Diagnoses Not on filedocumented in this encounter Care Teams Admissions Counselor Relationship Specialty Start Date End Date Javi Webster MD [facility] [address] [facility] [address] [place] [address] PCP - General Pediatrics 08/02/13 11/29/13 Madina Amezcua MD [facility] [address] [facility] [address] [facility] [address] [place] [address] PCP - General Internal Medicine 11/30/13 7 Specialists, Obstetrics & Gynecology [address], [address] [place] [address] PCP - General 09/05/20 09/01/23 Felipa Wallace PA-C [address], [address] [address] PCP - General Family Medicine 09/02/23 Felipa Wallace PA-C [address], [address] [address] Assigned PCP 09/07/23 documented as of this encounter
--- OUTSIDE RECORDS SUMMARY | 2024-12-14 00:09 | XMS_ITS | Referral Summary ---
Author Organization [facility] Address [address] [place] [address]. [place] [address] Care Team Providers Care Director Outpatient Services Name Role Phone Felipa Wallace PA-C Primary Care Provid er Felipa Wallace PA-C Unavailable [phone]- [phone] Encounters Date Type Department Care Team Description 10/12/2024 MyC Medical Advice [facility] [address] [place] [phone] Felipa Wallace PA-C 10/09/2024 MyC Refill [facility] [address] [place] [address] [address] [place] [phone] Felipa Wallace PA-C Refill Request from Last 3 Months Allergies Active Allergy Reactions Criticality Noted Date Comments Amoxicillin 07/24/2013 Cefixime 09/05/2020 Had a reaction when I was a baby. Does not know the reaction Hazelnut (Filbert) 04/10/2023 Medications EPINEPHrine (ANY BX GENERIC EQUIV) 0.3 MG/0.3ML injection 2-pack Inject 0.3 mLs (0.3 mg) into the muscle as needed for anaphylaxis 1 each 09/05/20 Active JUNEL 1.530 1.5-30 MG-MCG tablet Take 1 tablet by mouth daily 09/18/20 23 Active levothyroxine (SYNTHROID/LEVOTH ROID) 25 MCG [...] Noted Date Diagnosed Date Resolved Date Health Long Term 09/03/2023 05/18/2024 Immunizations Name Administration Dates Next Due Flu, Unspecified 08/26/2017,09/11/2013 HPV 12/17/2014,07/28/2014 HPV Quadrivalent 12/17/2014,07/28/2014 Hpv, Unspecified 12/17/2014,07/28/2014 Influenza (IIV3) PF 08/26/2017 Influenza Vaccine >6 months,quad, PF 09/11/2013 TDAP (Adacel,Boostrix) 03/04/2023 TDAP Vaccine (Adacel) 07/31/2013 Social History Tobacco Use Types Packs/Day Years Used Date Smoking Tobacco: Never Passive Smoke Exposure: Never Smokeless Tobacco: Never Alcohol Use Standard Drinks/Week Comments Not Currently 0 (1 standard drink = 0.6 oz pur e alcohol) PHQ-2 Answer Date Recorded PHQ-2 Score 2 01/29/2024 [place] Depression Scale Answer Date Recorded Last EPDS Total Score Not on file 04/15/2023 The thought of harming myself has occurred to me . Never 04/15/2023 Adolescent Education Answer Date Record ed Getting School Help Needed Not on file 09/03 Comments No Sex and Gender Information Value Date Recorded Sex Assigned at Not on file Legal Sex Female 3:26 AM EXTENSION SERVICE SPECIALIST Gender Identity Not on file Sexual Orientation [...] 153.7 cm (5' 0.5) 01/29/2024 9:48 AM EXTENSION SERVICE SPECIALIST Body Mass Index 22.09 01/29/2024 9:48 AM EXTENSION SERVICE SPECIALIST Plan of Treatment Not on file Procedures Procedure Name Priority Date/Time Associated Diagnosis Comments ASTHMA ACTION PLAN Routine 01/29/2024 1: 19 PM EXTENSION SERVICE SPECIALIST Mild persistent asthma without complication TSH WITH FREE T4 REFLEX ([facility]) Routine 01/29/2024 11:30 AM EXTENSION SERVICE SPECIALIST Shortness of breath Hypothyroidism, unspecified type HIV 1&2 ANTIBODY (EXTERNAL RESULT) Routine 09/17/2022 8:00 AM CDT PAP IMAGED THIN LAYER SCREEN Routine 11/12/2014 12:00 AM EXTENSION SERVICE SPECIALIST from Last 3 Months or Most Recently Relevant to Health Maintenance Results * TSH WITH FREE T4 REFLEX ([facility]) (01/29/2024 11:30 AM EXTENSION SERVICE SPECIALIST) TSH 0.60 mIU/L [facility] Comment: Reference Range > or = 20 Years 0.40-4.50 Ranges First trimester 0.26-2.66 Second trimester 0.55-2.73 Third trimester 0.43-2.91 Blood 01/29/2024 11:3 0 AM EXTENSION SERVICE SPECIALIST 01/30/2024 3:13 AM EXTENSION SERVICE SPECIALIST Narrative Resulting Agency Comment Performing Organization Information: [facility] [address] [place] [address] Jason Zaldivar Felipa Wallace PA-C LAB - NON-BEAKER BLO OD LABS Final Result [facility] [address] [facility] [place], [place] [address] [phone] * HIV-1 Antibody (External Result) (09/17/2022 8:00 AM CDT) HIV 1&2 Antibody (External) Negative Nonreactive EXTERNAL LAB 09/17/2022 8:00 AM CDT us Patient Reported LAB - HIM EXTERNAL RESULT Final Result EXTERNAL LAB External Lab * (ABNORMAL) PAP IMAGED THIN LAYER SCREEN (11/12/2014 12:00 AM EXTENSION SERVICE SPECIALIST) PAP ASC-US(A) JAMEE Rodriguez Report Patient Name: ISHAN HENDERSON MR#: [id number] Specimen #: [id number] Collected: 11/12/2014 Received: 11/15/2014 Reported: 11/19/2014 16:30 Ordering Phy(s): MARY ANN TRAN SPECIMEN/STAIN PROCESS: Pap imaged thin layer [...] Shaka Nguyen M.D. Processed and screened at [facility] CLINICAL HISTORY: LMP: 10/27/14 Papanicolaou Test Limitations: Cervical cytology is a screening test with limited sensitivity; regular screening is critical for cancer prevention; Pap tests are primarily effective for the diagnosis/preventi on of squamous cell carcinoma, not adenocarcinomas or other cancers. TESTING LAB LOCATION: [address] [address] COLLECTION SITE: Client: [facility] Location: [facility] (R) COPATH Cytologic material (specimen) 11/12/2014 11/15/2014 12:11 PM EXTENSION SERVICE SPECIALIST us Mary Ann Tran START UP SPECIALIST AUTOMOBILE BODY WORKER LAB - [facility]ECIMEN Final Result COPATH from Last 3 Months or Most Recently Relevant to Health Maintenance Insurance [facility] Advance Directives For more information, please contact: [phone] * Full Code (Latest Code Status on File) Date Activated Date Inactivated Comments 04/12/2023 8:47 AM 04/15/2023 8:49 PM All basic an d advanced life-sustaining interventions are performed as appropriate Question Answer Comments Code status determined by: Discussion with reagan nt/ legal decision maker Care Teams Director Outpatient Services Relationship Specialty Start Date End Date Felipa Wallace PA-C [address], [address] [address] PCP - General Family Medicine 09/02/23 Felipa Wallace PA-C [address], [address] [address] Assigned PCP 09/07/23
[2024-12-14 00:15] VITALS: BP 154/89; PULSE 99; RESP 18; TEMP 37.2; O2SAT 99; BMI 209.7
--- NOTE | 2024-12-14 00:41 | ED.GENADULT ---
HPI - General Adult General Date Seen: 12/14/24 Chief complaint: Allergic Reaction Stated complaint: allergic reaction Time Seen by Provider: 12/14/24 00:23 History of Present Illness HPI narrative: Patient is a 29-year-old woman who presents with an itchy rash which she identifies as hive. She says she has had multiple episodes of this over her lifetime, sporadically, without a clear trigger. Her mom who is with her notes that her grandmother had similar episodes. She has never had any kind of workup for testing for this. She does not have any difficulty breathing, facial swelling although she does note that the 1st time this happened she did have facial swelling. She gets redness and itching in her hands and then breaks out in hives. She normally takes Benadryl at home but did not have any tonight so she comes into the ER. She does not have any GI symptoms, lightheadedness, difficulty breathing or other symptoms at this time. Related Data Home Medications ?Medication ?Instructions ?Recorded ?Confirmed albuterol sulfate 90 mcg/actuation 2 puff inhalation Q6H PRN wheezing 08/05/24 12/14/24 aerosol inhaler (Ventolin HFA) dextroamphetamine-amphetamine 10 1 tab PO DAILY 08/05/24 12/14/24 mg tablet dextroamphetamine-amphetamine ER 1 cap PO DAILY 08/05/24 12/14/24 30 mg 24hr capsule,extend release fluticasone 100 mcg-salmeterol 50 1 ea inhalation Q12H 08/05/24 12/14/24 mcg/dose blistr powdr for inhalation (Advair Diskus) levothyroxine 25 mcg tablet 25 mcg PO DAILY 08/05/24 11/04/24 norethindrone acetate 1.5 1 tab PO DAILY 08/05/24 11/04/24 mg-ethinyl estradiol 30 mcg tablet (Yusra) Allergies Allergy/AdvReac Type Severity Reaction Status Date / Time Sulfa (Sulfonamide Allergy Mild Hives Verified 12/14/24 00:16 Antibiotics) hazelnut Allergy Unknown Verified 12/14/24 00:16 Review of Systems Status of ROS: Reports: 6 or more systems reviewed and unremarkable except as noted in History and below [facility] Medical History (Updated 12/14/24 @ 00:37 by Lexis Herrera MD) Asthma ?J45.909 - Unspecified asthma, uncomplicated (ICD-10) Social History Smoking Status: Never smoker Do you use any of these nicotine containing products: None Second hand tobacco smoke exposure: No How often do you have a drink containing alcohol: never AUDIT-C Alcohol total score: 0 Non-prescribed substance use: denies use service: No Exam Narrative: Exam Narrative: Vital signs reviewed In general, alert, nontoxic young woman. She looks itchy. Head: Normocephalic, atraumatic. Eyes: Sclera clear. Pupils equal and reactive. ENT: Mucous membranes moist. No intraoral edema, airway patent. Neck: Supple without adenopathy. No stridor. Heart: Regular rate and rhythm without murmur. Lungs: Clear. No increased work of breathing, crackles or wheezes. Abdomen: Soft, nontender to palpation. Extremities: Well perfused, pulses intact. No significant edema. Neurologic: Alert, conversant. Speech fluent, face symmetric. Moves all extremities equally. Skin: She has diffuse erythema with urticaria over her arms, she has more spotty urticaria over her legs and torso. Affect: Normal. Const: Vital Signs, click to edit/add: Vital Signs - 24 hr 12/14/24 00:15 Temperature 99.0 F Pulse Rate [Left P ulse Oximeter] 99 Respiratory Rate 18 Blood Pressure [Ri ght Upper Arm] 154/89 H Pulse Oximetry 99 Oxygen Delivery Me thod Room Air Documenting provider has reviewed patient's vital signs: yes Course Course ED Course: She had allergy testing as a child but nothing more recently. She is not presenting with signs of anaphylaxis at this time. I think it is reasonable to treat with antihistamines and I gave her prescription for prednisone to use as well if she would like. Vital signs are reassuring, lungs are clear, and there is no sign of angioedema. Discussed that follow-up with primary care would be reasonable to consider testing for allergies or mast cell activation syndrome. I think this can reasonably be done as an outpatient. She does have an EpiPen at home, discussed that if she develops more serious symptoms involving airway or breathing, that she should use her EpiPen and return. Otherwise, recommended scheduled antihistamines for the next 72 hours, prednisone if needed, and outpatient follow-up as discussed. Vital Signs Vital signs: Initial Vital Signs Temperature 99.0 F 12/14/24 00:15 Temperature Source Temporal Artery Scan 12/14/24 00:15 Pulse Rate 99 12/14/24 00:15 Respiratory Rate 18 12/14/24 00:15 Blood Pressure 154/89 H 12/14/24 00:15 Blood Pressure Mean 110 H 12/14/24 00:15 Blood Pressure Position Sitting 12/14/24 00:15 Pulse Oximetry 99 12/14/24 00:15 Oxygen Delivery Method Room Air 12/14/24 00:15 Vital Signs Temperature 99.0 F 12/14/24 00:15 Pulse Rate 99 12/14/24 00:15 Respiratory Rate 18 12/14/24 00:15 Blood Pressure 154/89 H 12/14/24 00:15 Pulse Oximetry 99 12/14/24 00:15 Oxygen Delivery Method Room Air 12/14/24 00:15 Temperature 99.0 F 12/14/24 00:15 Pulse Rate 99 12/14/24 00:15 Respiratory Rate 18 12/14/24 00:15 Blood Pressure 154/89 H 12/14/24 00:15 Pulse Oximetry 99 12/14/24 00:15 Oxygen Delivery Method Room Air 12/14/24 00:15 Discharge Plan Discharge Clinical Impression: Urticaria Patient Disposition: Home, Self-Care Condition: Stable Instructions: Urticaria (ED) Additional Instructions: I would recommend that you take a Zyrtec, 10 mg twice daily for the next 3 days. You can use the prednisone if you find that you need additional medication to treat your rash. Cause for the symptoms is unclear at this time. It would be reasonable to follow-up with primary care, consider allergy testing as well as workup for possible mast cell activation syndrome. If you develop wheezing, swelling of your mouth or throat, lightheadedness or fainting, or other worsening, you should use your EpiPen and return to the ER. Otherwise, see primary care for persistent rash next week. Prescriptions: No Action dextroamphetamine-amphetamine 10 mg tablet 1 tab PO DAILY norethindrone ac-eth estradiol [Yusra] 1.5-30 mg-mcg tablet 1 tab PO DAILY levothyroxine 25 mcg tablet 25 mcg PO DAILY fluticasone propion-salmeterol [Advair Diskus] 100-50 mcg/dose blister with device 1 ea inhalation Q12H albuterol sulfate [Ventolin HFA] 90 mcg/actuation HFA aerosol inhaler 2 puff inhalation Q6H PRN (Reason: wheezing) dextroamphetamine-amphetamine 30 mg capsule,extended release 24hr 1 cap PO DAILY Follow Up/Referrals: Provider,Not a Local [Primary Care Provider] - Stand Alone Forms: CaptureProof Info Instructions
--- OUTSIDE RECORDS SUMMARY | 2024-12-14 00:44 | XMS_ITS | Encounter Summary ---
Author Organization [facility] Address [address] [place] [address]. [place] [address] Care Team Providers Care Traction Power Engineer Name Role Phone Madina Amezcua MD Primary Care Provider Unavailable Specialists, Obstetrics & Gynecology Primary Car e Provider Felipa Wallace PA-C Primary Care Provid er Felipa Wallace PA-C Unavailable [phone] Reason for Visit * Reason Onset Date Comments Vaginal Problem 01/10/2014 Vaginal discharg e Encounter Details Date Type Department Care Team (Late st Contact Info) Description 01/10/2014 MyC Medical Advice [address] [address] Madina Amezcua MD Vaginal Problem (Vaginal discharge) Social History Tobacco Use Types Packs/Day Years Used Date Smoking Tobacco: Never Smokeless Tobacco: Never Alcohol Use Standard Drinks/Week Comments Yes 0 (1 standard drink = 0.6 oz pur e alcohol) occasional Comments No Sex and Gender Information Value Date Recorded Sex Assigned at Not on file 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 Gender Identity Not on file Sexual Orientation Not on file documented as of this encounter Plan of Treatment Not on file documented as of this encounter Visit Diagnoses Diagnosis Vaginal discharge- Primary Leukorrhea, not specified as infective Bacterial vaginosis Vaginitis and vulvovaginitis, unspecified documented in this encounter Care Teams Traction Power Engineer Relationship Specialty Start Date End Date Goldie, Madina Zarate MD PCP - General Internal Medicine 11/30/13 10/27/17 Specialists, Obstetrics & Gynecology [address], [address] [place] [address] PCP - General 09/05/20 09/01/23 Felipa Wallace PA-C [address] , [facility] [address] [place] [address] PCP - General Family Medicine 09/02/23 Felipa Wallace PA-C [address], [facility] 100 [place] [address] Assigned PCP 09/07/23 documented as of this encounter
--- OUTSIDE RECORDS SUMMARY | 2024-12-14 00:44 | XMS_ITS | Encounter Summary ---
Author Organization [facility] Address [facility] [place] [address] Care Team Providers Care Ring Stamper Name Role Phone Specialists, Obstetrics & Gynecology Primary Car e Provider Felipa Wallace PA-C Primary Care Provid er Felipa Wallace PA-C Unavailable [phone]- [phone] Reason for Visit * Reason Comments Medication Refill Encounter Details Date Type Department Care Team (Late st Contact Info) Description 10/18/2020 [facility] [address], [address] [place] [address] Darlene Wise PA-C [address] [facility] [address] [place], [place] [id number] Medication Refill Social History Tobacco Use Types Packs/Day Years Used Date Smoking Tobacco: Never Smokeless Tobacco: Never Alcohol Use Standard Drinks/Week Comments Yes 0 (1 standard drink = 0.6 oz pur e alcohol) 4 drinks per week. 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 Jacqueline Izaguirre, RN on 10/18/2020 at 8:55 AM DRIVER documented in this encounter Plan of Treatment Not on file documented as of this encounter Visit Diagnoses Diagnosis Mild intermittent asthma Unspecified asthma documented in this encounter Care Teams Ring Stamper Relationship Specialty Start Date End Date Specialists, Obstetrics & Gynecology [address], [address] [place], [place] [phone] PCP - General 09/05/20 09/01/23 Felipa Wallace PA-C [address], [address] [address] PCP - General Family Medicine 09/02/23 Felipa Wallace PA-C [address], [facility] 100 [place] [address] Assigned PCP 09/07/23 documented as of this encounter
--- OUTSIDE RECORDS SUMMARY | 2024-12-14 00:44 | XMS_ITS | Encounter Summary ---
Author Organization [facility] Address [address] [place] [address]. [place] [address] Care Team Providers Care Exchange Mechanic Name Role Phone Javi Webster MD Primary Care Provider [phone] Madina Amezcua MD Primary Care Provider Unavailable Specialists, Obstetrics & Gynecology Primary Car e Provider Felipa Wallace PA-C Primary Care Provid er Felipa Wallace PA-C Unavailable [phone] Reason for Visit * Reason Onset Date Comments Vaginal Problem 11/28/2013 Encounter Details Date Type Department Care Team (Late st Contact Info) Description 11/28/2013 My[facility] Medical Advice [address] [address] Madina Amezcua MD Vaginal Problem Social History Tobacco Use Types Packs/Day Years Used Date Smoking Tobacco: Never Smokeless Tobacco: Never Alcohol Use Standard Drinks/Week Comments Yes 0 (1 standard drink = 0.6 oz pur e alcohol) Comments No Sex and Gender Information Value Date Recorded Sex Assigned at Not on file 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 Gender Identity Not on file Sexual Orientation Not on file documented as of this encounter Plan of Treatment Not on file documented as of this encounter Visit Diagnoses Not on filedocumented in this encounter Care Teams Exchange Mechanic Relationship Specialty Start Date End Date Javi Webster MD [facility] [address] [facility] [address] [place] [address] PCP - General Pediatrics 08/02/13 11/29/13 Madina Amezcua MD [facility] [address] [facility] [address] [place] [address] PCP - General Internal Medicine 11/30/13 7 Specialists, Obstetrics & Gynecology [address], [address] [place] [address] PCP - General 09/05/20 09/01/23 Felipa Wallace PA-C [address], [address] [address] PCP - General Family Medicine 09/02/23 Felipa Wallace PA-C [address], [address] [address] Assigned PCP 09/07/23 documented as of this encounter
--- OUTSIDE RECORDS SUMMARY | 2024-12-14 00:44 | XMS_ITS | Encounter Summary ---
Author Organization [place] Address [address] [place] [address]. [place] [address] Care Team Providers Care Psych Social Worker Name Role Phone Madina Amezcua MD Primary Care Provider Unavailable Specialists, Obstetrics & Gynecology Primary Car e Provider Felipa Wallace PA-C Primary Care Provid er Felipa Wallace PA-C Unavailable +1- [phone] Reason for Visit * Reason Onset Date Comments Vaginal Problem 03/02/2014 Update on vagina l discharge Encounter Details Date Type Department Care Team (Late st Contact Info) Description 03/02/2014 MyC Medical Advice [address] [address] Madina Amezcua MD Vaginal Problem (Update on vaginal discharge) Social History Tobacco Use Types Packs/Day Years Used Date Smoking Tobacco: Never Smokeless Tobacco: Never Alcohol Use Standard Drinks/Week Comments Yes 0 (1 standard drink = 0.6 oz pur e alcohol) occasional Comments No Sex and Gender Information Value Date Recorded Sex Assigned at Not on file 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 Gender Identity Not on file Sexual Orientation [...] on filedocumented in this encounter Care Teams Psych Social Worker Relationship Specialty Start Date End Date Goldie, Madina Zarate MD PCP - General Internal Medicine 11/30/13 10/27/17 Specialists, Obstetrics & Gynecology [address], [address] [place], [place] [id number] PCP - General 09/05/20 09/01/23 Felipa Wallace PA-C [address], [facility] [address] [place] [address] PCP - General Family Medicine 09/02/23 Felipa Wallace PA-C [address], [facility] [address] [place] [address] Assigned PCP 09/07/23 documented as of this encounter
--- OUTSIDE RECORDS SUMMARY | 2024-12-14 00:44 | XMS_ITS | Encounter Summary ---
Author Organization [place] Address [address] [place], [place] [address]. [place] [address] Care Team Providers Care Retail Salesperson Name Role Phone Felipa Wallace PA-C Primary Care Provid er Felipa Wallace PA-C Unavailable +- [phone] Reason for Visit * Reason Onset Date Comments Refill Request 04/23/2024 Encounter Details Date Type Department Care Team ([facility] st Contact Info) Description 04/23/2024 MyC Refill [facility] [address] [phone] Felipa Wallace PA-C [address] [place] [phone] Refill Request Social History Tobacco Use Types Packs/Day Years Used Date Smoking Tobacco: Never Passive Smoke Exposure: Never Smokeless Tobacco: Never Alcohol Use Standard Drinks/Week Comments Not Currently 0 (1 standard drink = 0.6 oz pur e alcohol) PHQ-2 Answer Date Recorded PHQ-2 Score 2 01/29/2024 [place] Depression Scale Answer Date Recorded Last EPDS Total Score Not on file 04/15/2023 The thought of harming myself has occurred to me . 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
--- OUTSIDE RECORDS SUMMARY | 2024-12-14 00:44 | XMS_ITS | Clinical Summary ---
Author Organization [place] Address [address] [place] [address]. [place] [address] Care Team Providers Care Wallpaper Hanger Helper Name Role Phone Felipa Wallace PA-C Primary Care Provid er Felipa Wallace PA-C Unavailable [phone]- [phone] Allergies Active Allergy Reactions Criticality Noted Date [...] Noted Date Diagnosed Date Resolved Date Health Alf 09/03/2023 05/18/2024 Encounters Date Type Department Care Team Description 10/12/2024 MyC Medical Advice [facility] [address] [place] [phone] Felipa Wallace PA-C 10/09/2024 MyC Refill [facility] [address] [place] [address] [address] [place] [address] Felipa Wallace PA-C Refill Request from Last [...] Answer Date Recorded PHQ-2 Score 2 01/29/2024 [place] Depression Scale Answer Date Recorded Last EPDS Total Score Not on file 04/15/2023 The thought of harming myself has occurred to me . Never 04/15/2023 Adolescent Education Answer Date Record ed Getting School Help Needed Not on file 09/03 Comments No Sex and Gender Information Value Date Recorded Sex Assigned at Not on file Legal Sex Female 3:26 AM WATCH CRYSTAL CUTTER Gender Identity Not on file Sexual Orientation [...] 153.7 cm (5' 0.5) 01/29/2024 9:48 AM WATCH CRYSTAL CUTTER Body Mass Index 22.09 01/29/2024 9:48 AM WATCH CRYSTAL CUTTER Plan of Treatment Health Maintenance Due Date [...] ACTION PLAN Routine 01/29/2024 1: 19 PM WATCH CRYSTAL CUTTER Mild persistent asthma without complication TSH WITH FREE T4 REFLEX ([facility]) Routine 01/29/2024 11:30 AM WATCH CRYSTAL CUTTER Shortness of breath Hypothyroidism, unspecified type HIV 1&2 ANTIBODY (EXTERNAL RESULT) Routine 09/17/2022 8:00 AM CDT PAP IMAGED THIN LAYER SCREEN Routine 11/12/2014 12:00 AM WATCH CRYSTAL CUTTER from Last 3 Months or Most Recently Relevant to Health Maintenance Results * TSH WITH FREE T4 REFLEX ([facility]) (01/29/2024 11:30 AM WATCH CRYSTAL CUTTER) TSH 0.60 mIU/L [facility] Comment: Reference Range > or = 20 Years 0.40-4.50 Ranges First trimester 0.26-2.66 Second trimester 0.55-2.73 Third trimester 0.43-2.91 Blood 01/29/2024 11:3 0 AM WATCH CRYSTAL CUTTER 01/30/2024 3:13 AM WATCH CRYSTAL CUTTER Narrative Resulting Agency Comment Performing Organization Information: [facility] [address] [place] [address] Jason Zaldivar Felipa Wallace PA-C LAB - NON-BEAKER BLO OD LABS Final Result [employer] [place] [address], [facility] [phone] * HIV-1 Antibody (External Result) (09/17/2022 8:00 AM CDT) HIV 1&2 Antibody (External) Negative Nonreactive EXTERNAL LAB 09/17/2022 8:00 AM CDT us Patient Reported LAB - HIM EXTERNAL RESULT Final Result EXTERNAL LAB External Lab * (ABNORMAL) PAP IMAGED THIN LAYER SCREEN (11/12/2014 12:00 AM WATCH CRYSTAL CUTTER) PAP ASC-US(A) JAMEE Rodriguez Report Patient Name: ISHAN HENDERSON MR#: [id number] Specimen #: [id number] Collected: 11/12/2014 Received: 11/15/2014 Reported: 11/19/2014 16:30 [...] Shaka Nguyen M.D. Processed and screened at [facility], Counts Include [address] [facility] At [facility] CLINICAL HISTORY: LMP: 10/27/14 Papanicolaou Test Limitations: Cervical cytology is a screening test with limited sensitivity; regular screening is critical for cancer prevention; Pap tests are primarily effective for the diagnosis/preventi on of squamous cell carcinoma, not adenocarcinomas or other cancers. TESTING LAB LOCATION: [facility] [address] [place] [address] COLLECTION SITE: Client: [facility] Location: [facility] (R) COPATH Cytologic material (specimen) 11/12/2014 11/15/2014 12:11 PM WATCH CRYSTAL CUTTER us Lesia Tran ORACLE R12 DEVELOPER POWDER MIXER LAB - [facility] PECMARY ANN Final Result COPATH from Last 3 Months or Most Recently Relevant to Health Maintenance Insurance [facility] Advance Directives For more information, please contact: [phone] * Full Code (Latest Code Status on File) Date Activated Date Inactivated Comments 04/12/2023 8:47 AM 04/15/2023 8:49 PM All basic an d advanced life-sustaining interventions are performed as appropriate Question Answer Comments Code status determined by: Discussion with reagan nt/ legal decision maker Care Teams Wallpaper Hanger Helper Relationship Specialty Start Date End Date Felipa Wallace PA-C [address], [address] [address] PCP - General Family Medicine 09/02/23 Felipa Wallace PA-C [address], [facility] [address] [place] [address] Assigned PCP 09/07/23
--- OUTSIDE RECORDS SUMMARY | 2024-12-14 00:44 | XMS_ITS | Encounter Summary ---
Author Organization [place] Address [address] [place], [place] [address]. [place] [address] Care Team Providers Care Seo Executive Name Role Phone Felipa Wallace PA-C Primary Care Provid er Felipa Wallace PA-C Unavailable +- [phone] Reason for Visit * Reason Onset Date Comments Refill Request 04/15/2024 Encounter Details Date Type Department Care Team ([facility] st Contact Info) Description 04/15/2024 MyC Refill [facility] [address] [phone] Felipa Wallace PA-C [address] [place] [id number] Refill Request Social History Tobacco Use Types Packs/Day Years Used Date Smoking Tobacco: Never Passive Smoke Exposure: Never Smokeless Tobacco: Never Alcohol Use Standard Drinks/Week Comments Not Currently 0 (1 standard drink = 0.6 oz pur e alcohol) PHQ-2 Answer Date Recorded PHQ-2 Score 2 01/29/2024 [place] Depression Scale Answer Date Recorded Last EPDS Total Score Not on file 04/15/2023 The thought of harming myself has occurred to me . Never 04/15/2023 Adolescent Education Answer Date Record ed Getting School Help Needed Not on file 09/03 Comments No Sex and Gender Information Value Date Recorded Sex Assigned at Not on file Legal Sex Female 3:26 AM SEGMENTAL PAVING SUPERVISOR Gender Identity Not on file Sexual Orientation Not on file documented as of this encounter Plan of Treatment Not on file documented as of this encounter Visit Diagnoses Diagnosis ADHD (attention deficit hyperactivity disorder), inattentive type Attention deficit disorder with hyperactivity documented in this encounter Care Teams Seo Executive Relationship Specialty Start Date End Date Felipa Wallace PA-C [address], [address] [address] PCP - General Family Medicine 09/02/23 Felipa Wallace PA-C [address], [address] [address] Assigned PCP 09/07/23 documented as of this encounter
--- OUTSIDE RECORDS SUMMARY | 2024-12-14 00:44 | XMS_ITS | Encounter Summary ---
Author Organization [place] Address [address] [place] [address]. [place] [address] Care Team Providers Care Desktop Support Manager Name Role Phone Javi Webster MD Primary Care Provider [phone] Madina Amezcua MD Primary Care Provider Unavailable Specialists, Obstetrics & Gynecology Primary Car e Provider Felipa Wallace PA-C Primary Care Provid er Felipa Wallace PA-C Unavailable [phone] Reason for Visit * Reason Onset Date Comments Vaginal Problem 09/06/2013 Encounter Details Date Type Department Care Team (Late st Contact Info) Description 09/06/2013 MyC Medical Advice [address] [address] Madina Amezcua MD Vaginal Problem Social History Tobacco Use Types Packs/Day Years Used Date Smoking Tobacco: Never Smokeless Tobacco: Never Alcohol Use Standard Drinks/Week Comments Yes 0 (1 standard drink = 0.6 oz pur e alcohol) Comments Unknown Sex and Gender Information Value Date Recorded Sex Assigned at Not on file Legal Sex Female 3:26 AM MUSEUM LIBRARIAN Gender Identity Not on file Sexual Orientation Not on file documented as of this encounter Plan of Treatment Not on file documented as of this encounter Visit Diagnoses Not on filedocumented in this encounter Care Teams Desktop Support Manager Relationship Specialty Start Date End Date Javi Webster MD [facility] [address] [facility] [address] [place] [address] PCP - General Pediatrics 08/02/13 11/29/13 Madina Amezcua MD [facility] [address] [facility] [address] [facility] [address] [place] [address] PCP - General Internal Medicine 11/30/13 7 Specialists, Obstetrics & Gynecology [address], [address] [place] [address] PCP - General 09/05/20 09/01/23 Felipa Wallace PA-C [address], [address] [address] PCP - General Family Medicine 09/02/23 Felipa Wallace PA-C [address], [address] [address] Assigned PCP 09/07/23 documented as of this encounter
--- OUTSIDE RECORDS SUMMARY | 2024-12-14 00:44 | XMS_ITS | Continuity of Care Document ---
Author Name [facility]IN User [facility] Address Unknown Organization Unknown Address Unknown Encounters FILTER APPLIED:Only known Encounters with Admission Date within the last 5 years Encounter Location Admission Discharge Billing Code Health Communications Specialist Aurora torres Outpatient [facility] Outpatient [facility]
--- OUTSIDE RECORDS SUMMARY | 2024-12-14 00:44 | XMS_ITS | Referral Summary ---
Author Organization [place] Address [address] [place] [address]. [place] [address] Care Team Providers Care Orthopaedic General Name Role Phone Felipa Wallace PA-C Primary Care Provid er Felipa Wallace PA-C Unavailable +- [phone] Encounters Date Type Department Care Team Description 10/12/2024 MyC Medical Advice [facility] [address] [place] [phone] Felipa Wallace PA-C 10/09/2024 MyC Refill [facility] [address] [place] [address] [address] [place] [phone] Felipa Wallace PA-C Refill Request from Last [...] Noted Date Diagnosed Date Resolved Date Health Chcf 09/03/2023 05/18/2024 Immunizations Name Administration Dates Next [...] Answer Date Recorded PHQ-2 Score 2 01/29/2024 [place] Depression Scale Answer Date Recorded Last EPDS Total Score Not on file 04/15/2023 The thought of harming myself has occurred to me . Never 04/15/2023 Adolescent Education Answer Date Record ed Getting School Help Needed Not on file 09/03 Comments No Sex and Gender Information Value Date Recorded Sex Assigned at Not on file Legal Sex Female 3:26 AM RESIDENT SERVICES DIRECTOR Gender Identity Not on file Sexual Orientation [...] 153.7 cm (5' 0.5) 01/29/2024 9:48 AM RESIDENT SERVICES DIRECTOR Body Mass Index 22.09 01/29/2024 9:48 AM RESIDENT SERVICES DIRECTOR Plan of Treatment Not on file Procedures Procedure Name Priority Date/Time Associated Diagnosis Comments ASTHMA ACTION PLAN Routine 01/29/2024 1: 19 PM RESIDENT SERVICES DIRECTOR Mild persistent asthma without complication TSH WITH FREE T4 REFLEX ([facility]) Routine 01/29/2024 11:30 AM RESIDENT SERVICES DIRECTOR Shortness of breath Hypothyroidism, unspecified type HIV 1&2 ANTIBODY (EXTERNAL RESULT) Routine 09/17/2022 8:00 AM CDT PAP IMAGED THIN LAYER SCREEN Routine 11/12/2014 12:00 AM RESIDENT SERVICES DIRECTOR from Last 3 Months or Most Recently Relevant to Health Maintenance Results * TSH WITH FREE T4 REFLEX ([facility]) (01/29/2024 11:30 AM RESIDENT SERVICES DIRECTOR) TSH 0.60 mIU/L [facility] Comment: Reference Range > or = 20 Years 0.40-4.50 Ranges First trimester 0.26-2.66 Second trimester 0.55-2.73 Third trimester 0.43-2.91 Blood 01/29/2024 11:3 0 AM RESIDENT SERVICES DIRECTOR 01/30/2024 3:13 AM RESIDENT SERVICES DIRECTOR Narrative Resulting Agency Comment Performing Organization Information: [facility] [address] [facility] [place] [address] Jason Zaldivar Felipa Wallace PA-C LAB - NON-BEAKER BLO OD LABS Final Result [facility] [address] [facility] [place], [place] [address] [[email or web address]] [phone] * HIV-1 Antibody (External Result) (09/17/2022 8:00 AM CDT) HIV 1&2 Antibody (External) Negative Nonreactive EXTERNAL LAB 09/17/2022 8:00 AM CDT us Patient Reported LAB - HIM EXTERNAL RESULT Final Result EXTERNAL LAB External Lab * (ABNORMAL) PAP IMAGED THIN LAYER SCREEN (11/12/2014 12:00 AM RESIDENT SERVICES DIRECTOR) PAP ASC-US(A) JAMEE Rodriguez Report Patient Name: ISHAN HENDERSON MR#: [id number] Specimen #: [id number] Collected: 11/12/2014 Received: 11/15/2014 Reported: 11/19/2014 16:30 [...] Shaka Nguyen M.D. Processed and screened at [facility] CLINICAL HISTORY: LMP: 10/27/14 Papanicolaou Test Limitations: Cervical cytology is a screening test with limited sensitivity; regular screening is critical for cancer prevention; Pap tests are primarily effective for the diagnosis/preventi on of squamous cell carcinoma, not adenocarcinomas or other cancers. TESTING LAB LOCATION: [address] [address] COLLECTION SITE: Client: [facility] Location: [facility] (R) COPATH Cytologic material (specimen) 11/12/2014 11/15/2014 12:11 PM RESIDENT SERVICES DIRECTOR us Mary Ann Tran ENVIRONMENTAL LAW PROFESSOR WOOD HEEL FINISHER LAB - [facility] PECIMEN Final Result COPATH from Last 3 Months or Most Recently Relevant to Health Maintenance Insurance [facility] Advance Directives For more information, please contact: [phone] * Full Code (Latest Code Status on File) Date Activated Date Inactivated Comments 04/12/2023 8:47 AM 04/15/2023 8:49 PM All basic an d advanced life-sustaining interventions are performed as appropriate Question Answer Comments Code status determined by: Discussion with reagan nt/ legal decision maker Care Teams Orthopaedic General Relationship Specialty Start Date End Date Felipa Wallace PA-C [address], [address] [address] PCP - General Family Medicine 09/02/23 Felipa Wallace PA-C [address], [address] [address] Assigned PCP 09/07/23
[2024-12-14] MEDS: diphenhydrAMINE 25 MG CAPSULE 50 MG PO (00:45)
[2024-12-14 00:57] VITALS: BP 135/74; PULSE 90; RESP 18; TEMP 37.2; O2SAT 99
== END 2024-12-14 00:58 | disposition home or self-care (01) ==
LOC: ED 00:42
PROVIDERS: Emergency Provider Emergency Medicine
DX: R21 Rash and other nonspecific skin eruption (principal); L50.9 Urticaria, unspecified
CPT/HCPCS: 99283; 99284; A9270